=== PATIENT | female | born 1945 | race Caucasian/White ===

== ENCOUNTER 2017-12-08 07:51 | Outpatient (CLI) | payer MEDICARE ==
[2017-12-08] MEDS ORDERED: Iopamidol 370 76% 100 ML VIAL ONE (09:00)
--- NOTE | 2017-12-08 11:08 | CT ---
CT NECK SOFT TISSUE WITH CONTRAST: Date: 12/08/17 INDICATION: Right subglottic mass visualized endoscopically. Difficulty swallowing, progressive. FINDINGS: Within the right supraglottic larynx, abutting the cephalad aspect of the right vocal cord, there is a focal globular soft tissue mass, somewhat indistinct from surrounding soft tissues measuring approx imately 12.0 mm in AP diameter x 7.0 mm transverse. This does efface the airway, mildly. Epiglottis a nd preepiglottic space are maintained. No significant pathology of salivary glands or thyroid gland. There is mosaic attenuation of the imaged upper lung zones, incompletely assessed and nonspecific. No regional adenopathy is visualized. There is nonspecific wall prominence of the imaged esophagus. IMPRESSION: Right supraglottic mass as discussed above. Neoplasm is the diagnosis of exclusion. POS: KIRA
== END 2017-12-08 07:52 | disposition home or self-care (01) ==
LOC: SCSCT 07:51
PROVIDERS: ATTEND Nurse Practitioner Family
DX: R13.13 Dysphagia, pharyngeal phase (principal); D38.0 Neoplasm of uncertain behavior of larynx
CPT/HCPCS: 70491; 82565

== ENCOUNTER 2017-12-29 13:05 | Outpatient (CLI) | payer MEDICARE ==
--- NOTE | 2018-01-03 13:52 | RAD ---
MODIFIED BARIUM SWALLOW IN THE PRESENCE OF SPEECH PATHOLOGIST: HISTORY: Dysphagia. Pharyngeal phase. Feeding difficulty. EXPOSURE: 2.859 mGy. One minute. FINDINGS\IMPRESSION: In the presence of speech pathologist, the patient was administered puree, thin liquid, mechanical so ft, and regular texture consistencies. Speech pathologist reports mild functional impairment. No ev idence of penetration or aspiration. Please refer to the speech pathologist's report for feeding rec ommendation. Note, the examination was performed by Dr. Herbert. POS: KIRA
== END 2017-12-29 13:06 | disposition home or self-care (01) ==
LOC: RAD 13:05
PROVIDERS: ATTEND Otolaryngology Plastic Surgery within the Head & Neck
DX: R13.13 Dysphagia, pharyngeal phase (principal); R63.3 Feeding difficulties; D38.0 Neoplasm of uncertain behavior of larynx
CPT/HCPCS: 74230; G8996-GN-CJ; G8997-GN-CJ

== ENCOUNTER 2019-02-06 09:02 | Day surgery (SDC) | payer MEDICARE ==
[2019-02-03 11:40] VITALS: BMI 25.6
--- NOTE | 2019-02-05 22:33 | HP ---
HISTORY OF PRESENT ILLNESS: Ms. Cortes is a very pleasant 73-year-old woman, here today via referral from Dr. Corral for neurogenic claudication, but also bilateral dorsiflexion, weakness, right more severe than the left. She has been having claudication symptoms and leg pain for the past 3 years and has been managed well with injections, but within the last few months, she has developed weakness and notices a slap when she walks. MRI from the [facility] reveals severe central canal stenosis at L3-L4 as well as lateral recess stenosis at L4-5 that would fit this well. PAST MEDICAL HISTORY: Significant for hypercholesterolemia, chronic pain syndrome, depression, osteoarthritis, seasonal allergies, headaches, coronary arterial disease, hypertension. PAST SURGICAL HISTORY: Hysterectomy, tonsillectomy, and cholecystectomy. CURRENT MEDICATIONS: 1. Buprenorphine. 2. Meloxicam. 3. Bisoprolol. 4. Donepezil. 5. Aspirin. 6. Estradiol. 7. Prozac. 8. Pantoprazole. 9. Zonisamide. 10. Pravastatin. 11. Amlodipine. ALLERGIES: TO PLAVIX, CODEINE, PENICILLIN AND HYDROCODONE. PHYSICAL EXAMINATION: GENERAL: The patient is alert and oriented x3. EXTREMITIES: Gait is slowed and altered. Able to toe walk, but cannot heel walk. ASSESSMENT: Lumbar stenosis with neurogenic claudication and bilateral footdrop. PLAN: Dr. Galeas met with the patient, reviewed imaging, advocated for L3-L5 laminectomy. He explained to the patient the risks, benefits, and alternatives to the procedure. The patient expressed understanding and elected to move forward with surgery as discussed. I do believe the patient is mentally competent and capable of making medical decisions for herself and we will move forward with surgery as planned. Job ID: [id number]
[2019-02-06 10:44] LABS: Hemoglobin 12.8 g/dL (12.0-16.0); Mean Corpuscular Hemoglobin 29.5 pg (27.0-31.0); Mean Corpuscular Volume 89.4 fL (78.0-98.0); Mean Platelet Volume 6.6 fL (7.4-10.4); Platelet Count 409 thou/uL (130-400); RBC Distribution Width 11.7 % (11.5-14.5); Red Blood Cell (RBC) Count 4.32 mill/uL (4.20-5.40); White Blood Cell (WBC) Count 9.1 thou/uL (4.8-10.8)
[2019-02-06] MEDS ORDERED: Levofloxacin 500 mg/D5W 100 ml Premix Bag ONE (11:08)
[2019-02-06] MEDS ORDERED: Clindamycin/D5W 900 mg/50 ml Premix Bag ONE (11:08)
[2019-02-06 11:10] LABS: Anion Gap 11 mmol/L (10-20); BUN (Urea Nitrogen) 10 mg/dL (9.8-20.1); Calc. Creatinine Clearance 70 mL/min (70-130); Calcium 9.4 mg/dL (7.8-10.44); Carbon Dioxide 26 mmol/L (23-31); Chloride 107 mmol/L (98-107); Estimated GFR-MDRD 71; Glucose 88 mg/dL (83-110); Potassium 4.2 mmol/L (3.5-5.1); Sodium 139 mmol/L (136-145)
[2019-02-06] MEDS ORDERED: Scopolamine 1.5 mg/72 hour Patch ONE (11:12)
[2019-02-06] MEDS ORDERED: ePHEDrine 50 MG/ML VIAL ONE (12:14)
[2019-02-06] MEDS ORDERED: Lidocaine 1% PF 5 ML VIAL ONE (12:14)
[2019-02-06] MEDS ORDERED: Rocuronium Bromide 10 MG/ML (10ML VIAL) ONE (12:14)
[2019-02-06] MEDS ORDERED: PROPOFOL 200 MG/20 ML VIAL ONE (12:14)
[2019-02-06] MEDS ORDERED: Glycopyrrolate 0.2 MG/ML 5 ML SYRINGE ONE (12:14)
[2019-02-06] MEDS ORDERED: PHENYLEPHRINE-NS 100 MCG/ML 10 ML SYRINGE ONE (12:14)
[2019-02-06] MEDS ORDERED: Ondansetron PF 4 MG/2 ML Vial ONE (12:14)
[2019-02-06] MEDS ORDERED: Bupivacaine HCl 0.5%/Epinephrine 1:200,000/PF 30 ml Vial ONE (12:19)
[2019-02-06] MEDS ORDERED: Thrombin 5000 UNITS/5 ML VIAL ONE (12:19)
[2019-02-06] MEDS ORDERED: Fentanyl 250 MCG/5 ML VIAL ONE (12:25)
[2019-02-06] MEDS ORDERED: Midazolam HCl 2 mg/2 ml Vial ONE (12:25)
[2019-02-06] MEDS ORDERED: Fentanyl 100 MCG/2 ML VIAL ONE ×2 (14:31→15:02)
--- NOTE | 2019-02-06 15:32 | EKG ---
Test Reason : PREOP Blood Pressure : / mmHG Vent. Rate : 056 BPM Atrial Rate : 056 BPM P-R Int : 194 ms QRS Dur : 088 ms QT Int : 508 ms P-R-T Axes : 043 011 020 degrees QTc Int : 490 ms Sinus bradycardia Prolonged QT Abnormal ECG No previous ECGs available Confirmed by DR. Harsh WINTERS MD ([id number]) on 02/06/2019 3:32:22 PM Referred By: JEFFY Confirmed By:DR. Harsh WINTERS MD
[2019-02-06] MEDS ORDERED: traMADol HCl 50 MG TAB ONE (17:17)
--- NOTE | 2019-02-07 09:15 | OP ---
DATE OF PROCEDURE: 02/06/2019 TAIL END RIDER: Alfonso Vasquez PA-C. INDICATION: Pain. DIAGNOSIS: Lumbar stenosis. PROCEDURES PERFORMED: L3 through L5 lumbar decompression. ANESTHESIA: General. DESCRIPTION OF PROCEDURE: The patient was brought into the operating room and placed under general anesthesia. She was flipped from the supine to prone position on operating room table. A linear incision was planned spanning L3 to L5. After prepping and draping and after an appropriate preoperative pause, the incision was created. The soft tissues were swept away from midline. Self-retaining retractors were placed in the wound for optimal exposure. After confirming the appropriate level with C-arm fluoroscopy, an Adson rongeur was used to remove the spinous process of L4, the inferior aspect of L3, and the superior aspect of L5. High-speed cutting drill bit as well as 2, 3, and 4 mm Kerrisons were then used to complete the laminectomy. A laminectomy was extended laterally to encompass the medial aspect of the facet joints. After decompressing the L3 through L5 segments, the wound was irrigated. Hemostasis was maintained throughout. The wound was then closed in anatomic layers and a pressure dressing was applied. There were no known procedural complications. Job ID: [id number]
== END 2019-02-06 18:15 | disposition home or self-care (01) ==
LOC: SDC 09:02
PROVIDERS: ATTEND Neurological Surgery
PROC: 01NB0ZZ Release Lumbar Nerve, Open Approach (ICD-10-PCS; principal; 2019-02-06)
DX: M48.062 Spinal stenosis, lumbar region with neurogenic claudication (principal); M54.16 Radiculopathy, lumbar region; M21.371 Foot drop, right foot; M21.372 Foot drop, left foot; E78.00 Pure hypercholesterolemia, unspecified; F41.9 Anxiety disorder, unspecified; I25.10 Atherosclerotic heart disease of native coronary artery without angina pectoris; F32.9 Major depressive disorder, single episode, unspecified; G89.4 Chronic pain syndrome; L40.50 Arthropathic psoriasis, unspecified; K21.9 Gastro-esophageal reflux disease without esophagitis; I10 Essential (primary) hypertension; D50.9 Iron deficiency anemia, unspecified; G43.909 Migraine, unspecified, not intractable, without status migrainosus; Z79.02 Long term (current) use of antithrombotics/antiplatelets; Z88.5 Allergy status to narcotic agent; Z88.0 Allergy status to penicillin; Z79.899 Other long term (current) drug therapy
CPT/HCPCS: 36415; 76000; 80048; 85027; 93005; 93010; J0670; J1956; J2001; J2250; J2405; J2704; J3010; J3490